=== PATIENT | female | born 1985 | race Caucasian/White ===

== ENCOUNTER 2017-07-07 17:02 | Emergency (ER) | payer BC ==
[2017-07-07 17:50] LABS: #Eosinphils 0.1 thou/uL (0.0-0.7); #Lymphocytes 1.9 thou/uL (1.20-3.40); #Monocytes 0.6 thou/uL (0.11-0.59); #Neutrophils 7.1 thou/uL (1.40-6.50); %Basophils 0.3 % (0.0-1.0); %Eosinophils 1.2 % (0.0-10.0); %Lymphocytes 19.3 % (21.0-51.0); %Neutrophils 73.3 % (42.0-75.0); Hemoglobin 12.8 g/dL (12.0-16.0); Mean Corpuscular HGB CONC 33.9 g/dL (32.0-36.0); Mean Corpuscular Volume 94.3 fl (81.0-99.0); Platelet Count 186 thou/uL (130-400); RBC Distribution Width 11.3 % (11.5-14.5); Red Blood Cell (RBC) Count 4.01 mill/uL (4.20-5.40); White Blood Cell (WBC) Count 9.6 thou/uL (4.8-10.8)
[2017-07-07 17:57] LABS: INR-International Normal Ratio 0.9; Prothrombin Time 12.4 SEC (12.0-14.7)
[2017-07-07 17:58] LABS: PTT 24.9 SEC (22.9-36.1)
[2017-07-07 17:59] LABS: D-Dimer Test 1.93 *mcg/mL (0.27-0.43)
[2017-07-07 18:11] LABS: Anion Gap 14 mmol/L (10-20); BUN (Urea Nitrogen) 16 mg/dL (7.0-18.7); Calc. Creatinine Clearance 0 mL/min (70-130); Calcium 9.2 mg/dL (7.8-10.44); Carbon Dioxide 21 mmol/L (22-29); Chloride 107 mmol/L (98-107); Estimated GFR-MDRD Greater than 90; Glucose 81 mg/dL (70-105); Potassium 3.9 mmol/L (3.5-5.1); Sodium 138 mmol/L (136-145)
--- NOTE | 2017-07-07 18:43 | ULT ---
BILATERAL LOWER EXTREMITY VENOUS DUPLEX EXAM: 07/07/17 Deep veins of both lower extremities evaluated with color doppler, spectral analysis and compression. INDICATIONS: Lower extremity pain and edema. Deep veins show normal blood flow and compression. No evidence of DVT. IMPRESSION: No evidence of lower extremity DVT. POS: BRAYDEN
[2017-07-07] MEDS ORDERED: HYDROcodone/Acetaminophen 5/325 mg Tablet ONE (19:53)
== END 2017-07-07 20:31 | disposition home or self-care (01) ==
LOC: ERS 17:02
DX: O99.89 Other specified diseases and conditions complicating pregnancy, childbirth and the puerperium (principal); M79.662 Pain in left lower leg; O99.345 Other mental disorders complicating the puerperium; F41.9 Anxiety disorder, unspecified; O99.335 Smoking (tobacco) complicating the puerperium; Z79.899 Other long term (current) drug therapy
CPT/HCPCS: 80048; 85025; 85379; 85610; 85730; 93970

== ENCOUNTER 2018-04-17 10:39 | Observation (INO) | payer BC ==
[2018-04-17] MEDS ORDERED: Ketorolac Tromethamine 30 MG/ML VIAL ONE (11:38)
[2018-04-17] MEDS ORDERED: Diazepam 5 MG TAB ONE (11:38)
[2018-04-17] MEDS ORDERED: Ondansetron ODT 4 MG TAB ONE (11:46)
[2018-04-17] MEDS ORDERED: Acetaminophen 325 MG TAB ONE (12:42)
[2018-04-17] MEDS ORDERED: Morphine 4 MG/ML VIAL ONE (15:38)
[2018-04-17 16:45] LABS: #Eosinphils 0.1 thou/uL (0.0-0.7); #Lymphocytes 2.1 thou/uL (1.20-3.40); #Monocytes 0.4 thou/uL (0.11-0.59); #Neutrophils 4.1 thou/uL (1.40-6.50); %Basophils 0.1 % (0.0-1.0); %Eosinophils 1.2 % (0.0-10.0); %Lymphocytes 31.5 % (21.0-51.0); %Monocytes 6.4 % (0.0-10.0); %Neutrophils 60.8 % (42.0-75.0); Hemoglobin 14.5 g/dL (12.0-16.0); Mean Corpuscular HGB CONC 32.9 g/dL (32.0-36.0); Mean Corpuscular Volume 94.3 fL (78.0-98.0); Mean Platelet Volume 7.9 fL (7.4-10.4); Platelet Count 160 thou/uL (130-400); RBC Distribution Width 12.1 % (11.5-14.5); Red Blood Cell (RBC) Count 4.68 mill/uL (4.20-5.40); White Blood Cell (WBC) Count 6.8 thou/uL (4.8-10.8)
[2018-04-17 17:02] LABS: Chloride 106 mmol/L (98-107); Protein, Total 6.6 g/dL (6.0-8.3); Sodium 140 mmol/L (136-145)
[2018-04-17 17:08] LABS: Pregnancy Test - Urine (BHCG) Negative (Negative); Pregu Control Background? CLEAR/WHITE (CLR/WHITE); Pregu Control Bar Appear? YES (CONTROL BAR); Specific Gravity 1.009 (1.002-1.036)
[2018-04-17] MEDS ORDERED: Ondansetron PF 4 MG/2 ML Vial IVP PRN (17:13)
[2018-04-17 17:14] LABS: ALT (SGPT) 8 U/L (8-55); AST (SGOT) 14 U/L (5-34); Albumin 4.1 g/dL (3.5-5.0); Alkaline Phosphatase 84 U/L (40-150); Anion Gap 14 mmol/L (10-20); BUN (Urea Nitrogen) 11 mg/dL (7.0-18.7); Bilirubin, Total 1.2 mg/dL (0.2-1.2); Calc. Creatinine Clearance 0 mL/min (70-130); Carbon Dioxide 24 mmol/L (22-29); Estimated GFR-MDRD 86; Globulin 2.6 g/dL (2.4-3.5); Glucose 89 mg/dL (70-105)
[2018-04-17] MEDS ORDERED: Gabapentin 300 MG CAP PO PRN (17:15)
--- NOTE | 2018-04-17 17:20 | PDOC.EVN ---
Event Note - Event Note Event Note: H&P dictated #[id number]
--- NOTE | 2018-04-17 18:26 | MRI ---
MRI OF LUMBAR SPINE PERFORMED WITHOUT CONTRAST ENHANCEMENT: 04/17/18 HISTORY: Chronic low back pain. Patient bent down today to excelsior picker a pipe and legs gave out. Unable to bear we ight on legs and cannot sit. COMPARISON: 05/02/16 exam. The vertebral bodies are normal in height. Disc desiccation changes are seen at L5-S1 with a 4 to 5 m m of spondylolisthesis, similar to the prior exam. There is no significant periaortic adenopathy. The visualized portions of the kidneys are unremarkable. L1-2: Unremarkable. L2-3: Unremarkable. L3-4: Unremarkable. L4-5: Unremarkable. L5-S1: Minimal spondylolisthesis is present with disc bulge. No canal or foraminal narrowing. IMPRESSION: Grade I spondylolisthesis of L5 on S1 without significant canal or foraminal narrowing. Stable overal l exam. POS: LETICIA
[2018-04-17 20:08] VITALS: BMI 22.0
[2018-04-17] MEDS: HYDROcodone/Acetaminophen 5/325 mg Tablet PO PRN (20:11)
[2018-04-17] MEDS: Famotidine 20 MG TAB PO SCH (20:11)
[2018-04-18] MEDS: HYDROcodone/Acetaminophen 5/325 mg Tablet PO PRN ×3 (00:19→12:21)
--- NOTE | 2018-04-18 00:52 | HP ---
CHIEF COMPLAINT: Back pain. HISTORY OF PRESENT ILLNESS: This is a 32-year-old female with a known history of L4-L5 lumbar herniated disks in 2013 after lifting a heavy patient. 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 The patient stated that in 2013 as well as 2016 and then twice earlier this year in 2018 and then now she has had the same exact issue. The patient states that when she bends forward in a certain posture, she has a severe back pain radiating down to both legs as well as loss of motor function during that period in time. The patient has significant pain with ambulation as well and usually has a recovery period of 4 to 5 days after pain management. The patient has had an epidural steroid injection as well had attempts to Physical Therapy with improvement for pain. The patient, at this point in time, is able to move her lower extremities, however, has significant pain. The patient denies any other complaints or issues. No other alleviating or aggravating factors. The patient was seen and examined in the ER. is at bedside. PAST MEDICAL HISTORY: Pertinent for herniated disks at L4-L5 region. SOCIAL HISTORY: Social drinker. Nonsmoker anymore, was smoking 1 pack a day, quit in 2009. ALLERGIES: ROCEPHIN, ANAPHYLAXIS; LATEX, CONTACT ALLERGIES; PENICILLIN, ANAPHYLAXIS. REVIEW OF SYSTEMS: 12-point review of systems was performed. Pertinent positives in HPI, otherwise negative. PHYSICAL EXAMINATION: VITAL SIGNS: Blood pressure 125/66, temperature 98, respiratory rate of 18, and heart rate of 80. GENERAL: The patient appears in mild distress in bed. HEENT: NC/AT. EOMI. PERRLA. Oral cavity moist and pink. NECK: Supple. Mobile, nontender thyroid. LUNGS: Clear to auscultation bilaterally. No respiratory distress. CARDIOVASCULAR: Regular rate and rhythm. S1 and S2. No murmurs, rubs, or gallops appreciated. ABDOMEN: Positive bowel sounds. Soft and nontender. EXTREMITIES: 2+ peripheral pulses. Positive straight leg raise test bilaterally lower extremities. NEUROLOGIC: Cranial nerves 2 through 12 intact. No loss of sensory or function. Antalgic gait and significant pain with ambulation. LABORATORY DATA: CBC within normal limits. BMP within normal limits. Urine test negative. ASSESSMENT: 1. L4-L5 herniated disk. 2. Bilateral lower extremity pain. 3. Back pain. PLAN: 1. Admit to obs, get a stat MRI. Consulted Neurology and Pain Control. 2. If no herniated disk noted or indication for emergent surgeries, we will probably discharge the patient in a.m. with pain management to follow up outpatient with Neurosurgery as well as Physical Therapy for arrangement for potential surgical intervention for her problem. 3. DVT prophylaxis with Lovenox as well as Pepcid for GI ulceration prevention. 4. Case and plan discussed with the patient and family at length. They understand and agreed with this plan. Job ID: [id number]
[2018-04-18 08:22] VITALS: BP 109/71; TEMP 97.8
[2018-04-18] MEDS ORDERED: Enoxaparin Sodium 40 MG/0.4 ML SYRINGE SC SCH (09:00)
[2018-04-18] MEDS: Famotidine 20 MG TAB PO SCH ×2 (10:50→12:21)
--- NOTE | 2018-04-18 21:21 | DIS ---
DATE OF ADMISSION: 04/17/2018 DATE OF DISCHARGE: 04/18/2018 ADMITTING DIAGNOSES: Back pain, history of L4-L5 disk herniation. DISCHARGE DIAGNOSES: Back pain resolved, L5-S1 disk herniation. HOSPITAL COURSE: This is a 32-year-old female with known history of herniated disk in 2013 due to an incident upon having lifted a heavy patient. 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 The patient was admitted to the hospital with significant left lower back pain after having bend forward to lift something at her home. The patient was admitted to Internal Medicine team, had a stat MRI done, which showed L1 through L4 disks as unremarkable. However, did note that she had minimal spondylolisthesis with disk bulge present in L5-S1, no canal or narrowing noted. The patient was evaluated by Internal Medicine. Case was discussed with Neurosurgery, also determined that she will be discharged home after receiving physical therapy evaluation as inpatient, he is to follow up with PCP and Neurosurgery outpatient in about a week further management and care. The patient was given a work note as well to stay away from work up until April 28, 2018 and then was not to have any lifting over 50 pounds. Case and plan discussed with the patient at length and at bedside, they understanding and agreed with this plan. DISPOSITION: Home. FOLLOWUP: Follow up with PCP and Neurosurgery in 1 week. MEDICATIONS: See MAR. ACTIVITY: As tolerated with assistance as needed. DIET: Low-fat, low-calorie, high-fiber diet. CONDITION: Stable. Job ID: [id number]
== END 2018-04-18 13:24 | disposition home or self-care (01) ==
LOC: ERS 10:39 → 2SW 16:37
PROVIDERS: ADMIT Internal Medicine; ATTEND Internal Medicine
DX: M54.9 Dorsalgia, unspecified (principal); M51.26 Other intervertebral disc displacement, lumbar region; Z87.891 Personal history of nicotine dependence; Z88.0 Allergy status to penicillin; Z91.040 Latex allergy status; Z88.1 Allergy status to other antibiotic agents
CPT/HCPCS: 72148; 80053; 81025; 85025; 96372; G0378; G8978-GP-CM; G8979-GP-CJ; J1885; J2270; Q0162

== ENCOUNTER 2018-05-27 10:24 | Outpatient (CLI) | payer BC ==
--- NOTE | 2018-05-27 11:15 | CT ---
LUMBAR SPINE CT SCAN WITHOUT IV CONTRAST: Date: 05/27/18 HISTORY: Radicular pain. COMPARISON: Lumbar spine MRI dated 04/17/18. FINDINGS: Two tiny nonobstructing right renal calculi. The L1-L2, L2-L3, L3-L4, and L4-L5 discs demonstrate no evidence for focal herniation, or significant canal or foraminal stenosis. Mild, approximately 0.5 cm , anterolisthesis of L5 on S1. There are bilateral pars defects involving the more posterior portion of the pars interarticularis region with some sclerosis, with the pars defects being very close to th e facet joints bilaterally. IMPRESSION: Approximately 0.5 cm anterolisthesis of L5 on S1, but without significant stenosis. Bilateral pars de fects, which are somewhat more posteriorly located than typically seen. POS: LETICIA
== END 2018-05-27 10:25 | disposition home or self-care (01) ==
LOC: TBSIIMAG 10:24
PROVIDERS: ATTEND Neurological Surgery
DX: M43.16 Spondylolisthesis, lumbar region (principal)
CPT/HCPCS: 72131

== ENCOUNTER 2019-03-28 19:29 | Observation (INO) | payer BC ==
[2019-03-28] MEDS ORDERED: Morphine 4 MG/ML VIAL ONE (20:55)
[2019-03-28] MEDS ORDERED: Ondansetron PF 4 MG/2 ML Vial ONE (20:55)
[2019-03-28] MEDS ORDERED: Ketorolac Tromethamine 30 MG/ML VIAL ONE (20:55)
[2019-03-29] MEDS ORDERED: Ondansetron ODT 4 MG TAB SL PRN (00:04)
[2019-03-29] MEDS: Morphine 4 MG/ML VIAL SLOW IVP PRN ×3 (01:20→08:51)
[2019-03-29] MEDS: Ondansetron PF 4 MG/2 ML Vial IVP PRN ×2 (01:31→08:55)
[2019-03-29] MEDS ORDERED: Sodium Chloride 0.9% 10 ML ONE (08:50)
[2019-03-29] MEDS ORDERED: Cyclobenzaprine 10 MG TAB PO SCH (09:45)
[2019-03-29] MEDS ORDERED: predniSONE 20 MG TAB PO SCH (09:45)
[2019-03-29] MEDS ORDERED: Ketorolac Tromethamine 30 MG/ML VIAL IVP SCH ×2 (09:45→12:00)
[2019-03-29] MEDS: Sodium Chloride 0.9% 1,000 ML IV SCH ×2 (10:30→20:10)
[2019-03-29] MEDS ORDERED: HYDROcodone/Acetaminophen 5/325 mg Tablet PO PRN ×2 (11:13)
[2019-03-29] MEDS ORDERED: Acetaminophen 500 MG TAB PO PRN (11:13)
[2019-03-29] MEDS ORDERED: Ondansetron ODT 4 MG TAB PO PRN (11:13)
[2019-03-29] MEDS ORDERED: Ondansetron PF 4 MG/2 ML Vial IVP PRN (11:13)
--- NOTE | 2019-03-29 12:18 | HP ---
PRIMARY CARE PROVIDER: JAGDISH Justin. CHIEF COMPLAINT: Back pain. HISTORY OF PRESENT ILLNESS: This is a 33-year-old female, who presents to [facility] Emergency Department complaining of severe low back pain, which began approximately 1800 hours on 03/28/2019. The patient admits to longstanding intermittent back pain, which has required short hospitalizations due to pain control and inability to ambulate. The patient states she has had physical therapy in the past after these episodes, but has not undergone any directed physical therapy in over a year. The patient states she developed sudden low back pain. It was sharp centrally located in the lumbar region after attempting to lift her child. The patient states she has a history of L4 pars defect and has been evaluated by Neurosurgery in the past without specific or definitive plans for surgical intervention. The patient denied any bowel or bladder incontinence and states she can still move her lower extremities without difficulty, but this causes pain in her low back. The patient states that standing or lying flat makes it worse. The patient denied taking any home remedies, recent fever, chills, or dysuria. The patient denied any direct trauma, recent fall, change to bowel habits, blood in the stool or urine. In the emergency room, the patient underwent general evaluation, receiving IV morphine sulfate in addition to Toradol and Zofran. The patient was transferred to the medical floor for further observation. PAST MEDICAL HISTORY: 1. Intermittent back pain. 2. L4 pars defect with disk bulge. 3. Depression/anxiety. 4. PCOS. PAST SURGICAL HISTORY: Status post LASIK of bilateral eyes. CURRENT MEDICATIONS: Sertraline 50 mg p.o. daily. ALLERGIES: TO ROCEPHIN CAUSING HIVES, PENICILLIN AND LATEX. FAMILY HISTORY: Mom with a history of epilepsy. SOCIAL HISTORY: The patient resides in [place], [place]. Works with [employer]. Smokes up to half a pack of cigarettes daily. Social alcohol use. No illicit drug use. Functional of all activities of daily living. with two children. REVIEW OF SYSTEMS: CONSTITUTIONAL: Negative for weight loss or gain, ability to conduct usual activities. SKIN: Negative for rash, itching. EYES: Negative for double vision, pain. ENT/MOUTH: Negative for nose bleeding, neck stiffness, pain, tenderness. CARDIOVASCULAR: Negative for palpitations, dyspnea on exertion, orthopnea. RESPIRATORY: Negative for shortness of breath, wheezing, cough, hemoptysis, fever or night sweats. GASTROINTESTINAL: Negative for poor appetite, abdominal pain, heartburn, nausea, vomiting, constipation, or diarrhea. GENITOURINARY: Negative for urgency, frequency, dysuria, nocturia. MUSCULOSKELETAL: Negative for pain, swelling. NEUROLOGIC/PSYCHIATRIC: Negative for anxiety, depression. ALLERGY/IMMUNOLOGIC: Negative for skin rash, bleeding tendency. Otherwise negative except as stated per HPI. PHYSICAL EXAMINATION: VITAL SIGNS: On admission, blood pressure 122/56, pulse 69, respiratory rate 16, temperature 97.7 degrees Fahrenheit, O2 saturation 100% on room air. GENERAL APPEARANCE: This is a 33-year-old female, alert and oriented x3, pleasant, conversant, smiling, in no acute distress. HEENT: Pupils are equal, round, reactive to light and accommodation. Extraocular muscles are intact. No scleral icterus. No conjunctival injection. Nares are patent. OP is clear. Teeth in good repair. NECK: Supple. No cervical adenopathy. No thyromegaly. No carotid bruits. No JVD appreciated. Cervical spine with full active and passive range of motion. No meningeal signs noted. CHEST: Lungs are clear to auscultation bilaterally. CARDIOVASCULAR: S1, S2 without noted murmur, rub, or gallop. ABDOMEN: Flat, soft, nontender, and nondistended. Bowel sounds are positive in all 4 quadrants. There is no hepatosplenomegaly. No abdominal bruits, no rebound or guarding appreciated. EXTREMITIES: Warm and dry with fair turgor. No clubbing, cyanosis, or asymmetric edema appreciated. Pulses palpable distally at the dorsalis pedis, posterior tibial, and popliteal arteries bilaterally. Capillary refill less than 2 seconds. NEUROLOGIC: Cranial nerves 2 through 12 are grossly intact. No focal or lateralizing signs appreciated. MUSCULOSKELETAL: Straight leg raise test unable to be performed due to pain in the lower back. Strength testing reveals no focal deficits of the lower extremities. Diminished range of motion at the hip flexors due to pain in the low back. The patient not observed to be ambulatory during this exam. PERTINENT LAB AND X-RAY FINDINGS: No labs to review. ASSESSMENT PLAN: 1. Acute low back pain. The patient will be observed on the medical floor. We will continue symptomatic and supportive management. Toradol 30 mg IV q.6 hours with additional [place] 5/325 mg 1 to 2 tablets p.o. q.4 to 6 hours p.r.n. Continue Flexeril 10 mg p.o. t.i.d. Prednisone 40 mg p.o. daily. PT evaluation when pain controlled. 2. L4 pars defect. See #1 above. Outpatient followup with Neurosurgery for evaluation. No focal deficits on clinical exam. 3. Anxiety/depression. Continue sertraline 50 mg p.o. daily. 4. Tobacco use. Smoking cessation resources prior to discharge. 5. Prophylaxis. SCDs while in bed. Pepcid 20 mg p.o. b.i.d. CODE STATUS: Full. Surrogate medical decision maker is Daniel Cobb. Job ID: [id number]
[2019-03-29] MEDS: Ketorolac Tromethamine 30 MG/ML VIAL IVP SCH ×2 (16:21→21:07)
[2019-03-29] MEDS: Cyclobenzaprine 10 MG TAB PO PRN (18:41)
[2019-03-29] MEDS: Famotidine 20 MG TAB PO SCH (21:08)
[2019-03-30] MEDS ORDERED: Ketorolac Tromethamine 30 MG/ML VIAL ONE (05:53)
[2019-03-30] MEDS: Sodium Chloride 0.9% 1,000 ML IV SCH ×4 (12:21→15:49)
[2019-03-30] MEDS: Ketorolac Tromethamine 30 MG/ML VIAL IVP SCH ×4 (12:21→21:10)
[2019-03-30] MEDS: Famotidine 20 MG TAB PO SCH ×2 (12:22→21:10)
[2019-03-30] MEDS: predniSONE 20 MG TAB PO SCH (12:22)
[2019-03-30] MEDS: Cyclobenzaprine 10 MG TAB PO PRN (15:03)
--- NOTE | 2019-03-30 19:42 | PDOC.HOSPP ---
- Subjective Encounter Date: 03/30/19 Encounter Time: 09:00 Subjective: f/u for LBP and difficulty ambulating. Still with back pain with movement but moving LE's easier in bed. No fever or chills. No abd pain. - Objective Vital Signs & Weight: Vital Signs (12 hours) Temp Pulse Resp BP Pulse Ox 03/30/19 19:00 98.0 F 76 16 120/68 98 03/30/19 16:00 98.3 F 69 16 108/66 98 Weight Weight 150 lb 5.684 oz I&O: 03/29/19 03/30/19 03/31/19 06:59 06:59 06:59 Intake Total 264 Output Total 350 600 Balance -86 -600 Hospitalist ROS - Medication Medications: Active Medications Generic Name Dose Route Start Last Admin Trade Name Freq PRN Reason Stop Dose Admin Hydrocodone Bitart/Acetaminophen 2 tab 03/29/19 11:13 03/29/19 14:18 [place] 5/325 PO 2 tab Q4H PRN Administration Severe Pain (7-10) Cyclobenzaprine HCl 10 mg 03/29/19 11:37 03/30/19 15:03 Flexeril PO 10 mg TIDPRN PRN Administration Muscle Spasm Famotidine 20 mg 03/29/19 21:00 03/29/19 21:08 Pepcid PO 20 mg BID GIRMA Administration Sodium Chloride 1,000 mls @ 75 mls/hr 03/30/19 13:15 03/30/19 15:49 Normal Saline 0.9% IV 1,000 mls .[id number] GIRMA Administration Ketorolac Tromethamine 30 mg 03/29/19 16:00 03/30/19 15:03 Toradol IVP 04/03/19 16:01 30 mg 0400,1000,1600,2200 GIRMA Administration Prednisone 40 mg 03/30/19 08:00 03/30/19 12:22 Prednisone PO Not Given QAM-WM GIRMA - Exam General Appearance: NAD, awake alert Eye: PERRL, anicteric sclera ENT: normocephalic atraumatic, no oropharyngeal lesions Neck: supple, symmetric, no JVD, no thyromegaly Heart: RRR, no murmur, no gallops, no rubs, normal peripheral pulses Respiratory: CTAB, no wheezes, no rales, no ronchi, normal chest expansion Gastrointestinal: soft, non-tender, non-distended, normal bowel sounds Extremities: no cyanosis, no clubbing, no edema Skin: normal turgor, no lesions Neurological: cranial nerve grossly intact, no new deficit Musculoskeletal: normal tone, generalized weakness Psychiatric: normal affect, A&O x 3 Hosp A/P (1) Intractable low back pain Code(s): M54.5 - LOW BACK PAIN Status: Acute Plan: Slow improvement, continue current mgmt, OOB with PT (2) Pars defect of lumbar spine Code(s): M43.06 - SPONDYLOLYSIS, LUMBAR REGION Status: Chronic Plan: Chronic, follow up with NS as outpt (3) Anxiety and depression Code(s): F41.9 - ANXIETY DISORDER, UNSPECIFIED; F32.9 - MAJOR DEPRESSIVE DISORDER, SINGLE EPISODE, UNSPECIFIED Status: Chronic Plan: Continue Sertraline 50mg daily (4) Tobacco abuse Code(s): Z72.0 - TOBACCO USE Status: Chronic Plan: Smoking cessation resources - Plan plan discussed w/ family, PT/OT, director social welfare, out of bed/ambulate, DVT proph w/SCDs Stable overall Continue Pain control Continue Flexeril Continue Prednisone D/C Sharif catheter PT for evaluation Likely home in am
[2019-03-31] MEDS: Ketorolac Tromethamine 30 MG/ML VIAL IVP SCH ×3 (03:39→16:19)
[2019-03-31] MEDS: Sodium Chloride 0.9% 1,000 ML IV SCH (03:40)
[2019-03-31] MEDS: predniSONE 20 MG TAB PO SCH (09:08)
[2019-03-31] MEDS: Famotidine 20 MG TAB PO SCH (09:08)
--- NOTE | 2019-03-31 13:31 | MRI ---
MRI LUMBAR SPINE WITHOUT CONTRAST: HISTORY: Low back pain. Inability to ambulate. COMPARISON: MRI lumbar spine from 04/17/2018. CORRELATION: CT lumbar spine from 05/27/2018. FINDINGS: The conus medullaris ends at L2. The vertebral body heights and marrow signal are maintained. Grade 1 anterolisthesis of L5 on S1 is stable. Disk desiccation with mild loss of disk height at the L5-S1 l evel is stable. Mild broad-based disk bulging is again seen. No focal disk herniation or significant osseous stenosis is identified. There is minimal narrowing of the neural foramina at this level. The remainder of the exam is otherwise unremarkable. The paraspinal musculature is normal. IMPRESSION: Stable examination. POS: LETICIA
[2019-03-31 16:31] VITALS: BP 108/66; TEMP 97.9
--- NOTE | 2019-04-01 03:09 | CON ---
DATE OF CONSULTATION: This is a 50-minute initial patient evaluation in which greater than 50% of the time was spent in counseling and coordinating the patient's care. The remainder of the time was spent in review of the patient's medical record, imaging, examination, and formulation of treatment plan. CHIEF COMPLAINT: Low back pain. HISTORY OF PRESENT ILLNESS: Ms. Lozano is a pleasant 33-year-old female who presented to [facility] Emergency Room and was admitted for management of intractable low back pain 3 days ago. Neurosurgery was consulted today and the patient was evaluated on an inpatient basis with her sister at bedside. The patient reports intermittent episodes of low back pain since 2013. Her current episode of pain began acutely when she bent forward and lifted her 35-pound son off the ground earlier this week. The patient states her pain is most severe in her lower back. It is exacerbated by ambulation, bending, and twisting. She experiences most relief when lying flat. She also reports right greater than left hip pain. She denies any leg pain, paresthesias, or significant weakness at this time. When the patient presented, she was unable to ambulate due to severe pain in her back and required placement of Sharif catheter due to inability to transfer to a bedside commode or walk to the restroom. However, she denies having any recent bowel or bladder incontinence or difficulty with urination. The Sharif has since been removed and she reports that today she has been using a walker to help with ambulating to the restroom. She participated in physical therapy today. Review of the MRI without contrast of the lumbar spine that was completed today showed grade 1 spondylolisthesis at L5-S1 that appears stable in comparison to MRIs completed in 04/2016, 03/2018. No lumbar stenosis or acute abnormalities requiring emergent or urgent neurosurgical intervention at this time. Prior neurosurgical workup includes evaluation earlier this year by Dr. Burkett's team. The patient has previously undergone imaging of the lumbar spine including MRIs without contrast, CT without contrast, and upright static and dynamic x-rays. She was found to have bilateral L5 pars defects on CT and grade 2 spondylolisthesis on upright dynamic x-ray. Conservative management was pursued, which included one round of bilateral L5-S1 transfacet epidural steroid injections with Dr. Dorantes 9 months ago and physical therapy over a year ago. Dr. Burkett also discussed potential need for lumbar fusion surgery in the future. PHYSICAL EXAMINATION: GENERAL: The patient is awake, alert, appropriate, and in no acute distress. MUSCULOSKELETAL: The patient grimaces and reports pain in her lower back on rolling on her side to allow for palpation of the spine. No midline or paraspinal tenderness to palpation of the cervical, thoracic, or lumbar spines. No step-offs. No sacroiliac joint tenderness bilaterally. The patient is slow with plantar flexion of bilateral feet and bending up her left knee secondary to back pain, however, she exhibits full strength in her bilateral lower extremities. Sensation to light touch is intact and equal in bilateral lower extremities. The patient was lying in bed during the encounter and gait was not tested. IMPRESSION/DIAGNOSES: 1. Acute on chronic low back pain. 2. History of bilateral L5 pars defects and L5-S1 spondylolisthesis. PLAN: The patient appears to be doing well at this time. Reports improvement in pain and mobility. No neurologic deficits on examination. MRI of the lumbar spine appears stable compared to review of prior imaging, and the patient does not require emergent neurosurgical intervention at this time. Plan will be for the patient to follow up non emergently on an outpatient basis with Dr. Burkett's team. I have also recommended the patient follow up with Pain Management for additional epidural steroid injection of her lumbar spine given she reported these provided relief when she saw Dr. Dorantes earlier this year. Advised the patient to avoid bending and twisting at the waist as these movements can increase slippage of her spine level with spondylolisthesis. The patient states that her parents, sister, boyfriend, and ex- all are nearby and can help with caring for her son. I am reassured this good support system will be beneficial as she manages her pain acutely, and also should she require surgery in the future. This plan was discussed with the patient and her sister. They agree with the plan as discussed and have no further questions or complaints at this time. Job ID: [id number]
--- NOTE | 2019-04-01 05:19 | DIS ---
DATE OF ADMISSION: 03/29/2019 DATE OF DISCHARGE: 03/31/2019 DISCHARGE DIAGNOSES: 1. Acute low back pain, improved. 2. L5 on S1 anterolisthesis, stable. 3. Anxiety/depression, stable. 4. Tobacco use. 5. Cystitis, organism not identified. CONSULTATIONS: Neurosurgical service. PERTINENT LAB AND X-RAY FINDINGS: MRI of the lumbar spine, dated 03/31/2019, showed grade 1 anterolisthesis of L5 on S1, stable. Mild loss of disk height at L5 on S1. No focal disk herniation or significant osseous stenosis. HOSPITAL COURSE: The patient was observed after presenting with acute low back pain and inability to ambulate. The patient was treated with acute low back pain with IV Toradol in addition to [place] and Flexeril. The patient was also placed on prednisone 40 mg daily and given general supportive management. The patient had slow return to activity and ambulated short distance with a rolling walker. Physical Therapy did evaluate the patient with recommendations for gentle range of motion exercises and slow return to normal activities. The patient overall remained clinically stable during the hospital course tolerating regular oral intake with stable vital signs. I have examined the patient at the time of discharge and discussed followup instructions. The patient verbalized understanding and in agreement, ready for discharge on 03/31/2019. DISCHARGE MEDICATIONS: 1. Zoloft 50 mg p.o. daily. 2. Flexeril 10 mg p.o. t.i.d. p.r.n. 3. Ibuprofen 800 mg p.o. t.i.d. p.r.n. 4. Macrobid 100 mg p.o. b.i.d. x5 days. 5. Prednisone 20 mg 2 tablets p.o. daily x3 days, followed by 1 tablet p.o. daily x3 days, followed by half a tablet p.o. daily x3 days. FOLLOWUP: The patient may follow up with her primary care provider, Joan Goodrich within 7 days of discharge. The patient may follow up with the neurosurgical clinic outpatient and to call their office for appointment time and date. CONDITION ON DISCHARGE: Stable. ACTIVITY: Ad-carolynn. DIET: Regular. CODE STATUS: Full. DISPOSITION: To home, 03/31/2019. Job ID: [id number]
== END 2019-03-31 18:40 | disposition home or self-care (01) ==
LOC: ERS 19:29 → 3SE 03-29 00:15 → T4-A 03-29 16:07
PROVIDERS: ADMIT Internal Medicine; ATTEND Internal Medicine
DX: M54.5 Low back pain (principal); G89.29 Other chronic pain; M43.17 Spondylolisthesis, lumbosacral region; F32.9 Major depressive disorder, single episode, unspecified; F41.9 Anxiety disorder, unspecified; F17.210 Nicotine dependence, cigarettes, uncomplicated; N30.90 Cystitis, unspecified without hematuria; Z79.899 Other long term (current) drug therapy; Z88.0 Allergy status to penicillin; Z88.8 Allergy status to other drugs, medicaments and biological substances; Z91.040 Latex allergy status
CPT/HCPCS: 51702; 72148; 96374; 96375; 96376; G0378; J1885; J2270; J2405; J7512